=== PATIENT | male | born 1950 | race Caucasian/White ===

== ENCOUNTER 2024-07-08 17:55 | Emergency (ER) | payer MEDICARE, OTHER ==
[~2024-07-08] VITALS: Ht 172.7 cm; Wt 79.4 kg
[2024-07-08] MEDS ORDERED: ASPI81TA31 PO (18:06)
[2024-07-08] MEDS ORDERED: AMLODIPINE (18:06)
[2024-07-08] MEDS ORDERED: METFORMIN (18:06)
[2024-07-08] MEDS ORDERED: METOPROLOL (18:06)
[2024-07-08] MEDS ORDERED: FAMOTIDINE 20 MG TABLET PO ONE (18:45)
[2024-07-08] MEDS ORDERED: TDAP DIPH,PERTUSS,TET VAC/PF 0.5 ML DISP.SYRIN IM ONE (19:10)
[2024-07-08] MEDS: TDAP DIPH,PERTUSS,TET VAC/PF 0.5 ML DISP.SYRIN IM ONE (19:16)
[2024-07-08 19:20] VITALS: BP 142/77; TEMP 97.8; O2SAT 96
== END 2024-07-08 19:21 | disposition home or self-care (01) ==
LOC: ER 17:56
DX: E11.9 Type 2 diabetes mellitus without complications (principal); I10 Essential (primary) hypertension; I25.10 Atherosclerotic heart disease of native coronary artery without angina pectoris; I25.2 Old myocardial infarction; K21.9 Gastro-esophageal reflux disease without esophagitis; Z79.82 Long term (current) use of aspirin; Z95.5 Presence of coronary angioplasty implant and graft; W01.198A Fall on same level from slipping, tripping and stumbling with subsequent striking against other object, initial encounter; Y93.89 Activity, other specified; Y92.480 Sidewalk as the place of occurrence of the external cause; Y99.8 Other external cause status
CPT/HCPCS: 70450; 72125; 90715; A4606; A4663